=== PATIENT | female | born 1960 | race Two or more races ===

== ENCOUNTER 2017-02-18 05:47 | Day surgery (SDC) | payer BC ==
[2017-02-18] VITALS (10 sets, daily range): BP systolic 90–112; BP diastolic 55–62
[~2017-02-18] VITALS: Ht 152.4 cm; Wt 43.5 kg
[~2017-02-18 05:47] MED LIST: cefOXitin Sod 1 GM in D5W 55 ML IVPB ONE
[2017-02-18] MEDS ORDERED: Lidocaine 1% Plain 30 ml INJ ONE (06:58)
[2017-02-18] MEDS ORDERED: VITAMIN D1000 UNI1 ORAL (07:11)
[2017-02-18] MEDS ORDERED: Metoclopramide 10mg/2ml Inj ONE (07:30)
[2017-02-18] MEDS ORDERED: NS Irrig 1000ml ONE (07:30)
[2017-02-18] MEDS ORDERED: Propofol 10mg/ml 20ml IV ONE (07:30)
[2017-02-18] MEDS ORDERED: LR 1000ml ONE (07:30)
[2017-02-18] MEDS ORDERED: fentaNYL 100 mcg/2 mL IV ONE (07:30)
[2017-02-18] MEDS ORDERED: Midazolam 2mg/2ml Inj ONE (07:30)
[2017-02-18] MEDS ORDERED: Sterile Water Irrig 1000ml IRRIG ONE (07:30)
[2017-02-18] MEDS ORDERED: Ferric Subsulfate (Monsel's Soln) 30ml TOPIC ONE (07:45)
[2017-02-18] MEDS ORDERED: Lugol's (Strong Iodine) 30ml btl TOPIC ONE (07:45)
--- NOTE | 2017-02-18 07:50 | Pre-Procedure Note/Attestation ---
Pre-Procedure Note/Attestation Complete Prior to Procedure Planned Procedure: not applicable Procedure Narrative: LEEP, D&C, Hysteroscopy Indications for Procedure Pre-Operative Diagnosis: Cervical dysplasia, irregular bleeding Attestation I attest that I discussed the nature of the procedure; its benefits; risks and complications; and alternatives (and the risks and benefits of such alternatives ), prior to the procedure, with the patient (or the patient's legal patient service representative). I attest that, if there was a reasonable possibility of needing a blood transfusion, the patient (or the patient's legal patient service representative) was given the [facility] standardized written summary, pursuant to the Dale Adrián Blood Safety Act ([place] Health and Safety Code # 1645, as amended). I attest that I re-evaluated the patient just prior to the surgery and that there has been no change in the patient's H&P, except as documented below:NONE LUIS E GRUBBS Feb 18, 2017 07:50
[2017-02-18] MEDS ORDERED: Bupivacaine w/Epi 0.5% 30ml Vial INJ ONE (08:13)
[2017-02-18] MEDS ORDERED: fentaNYL 100 mcg/2 mL IV PRN (08:15)
[2017-02-18] MEDS ORDERED: Acetaminophen (Non formulary) 1,000 MG/100 ML ML IV ONE (08:30)
--- NOTE | 2017-02-18 08:58 | Immediate Post-Op Evaluation ---
Immediate Post-Op Evalulation Immediate Post-Op Evalulation Procedure: Leep and D&C Date of Evaluation: Feb 18, 2017 Time of Evaluation: 08:58 IV Fluids: 800 Blood Pressure Systolic: 98 Blood Pressure Diastolic: 50 Pulse Rate: 71 Respiratory Rate: 14 O2 Sat by Pulse Oximetry: 100 Temperature (Fahrenheit): 98.3 Nausea: No Vomiting: No Complications none Patient Status: awake, reacts, patent Hydration Status: adequate Drug: ancef Given Within 1 Hr of Incision: Yes Time Given: 07:30 ASHLEY CASTILLO CRNA Feb 18, 2017 08:58
[2017-02-18] MEDS ORDERED: Tylenol #3 tab (300mg/30mg) ORAL PRN (09:00)
[2017-02-18] MEDS ORDERED: HYDROmorphone 1mg/ml Carpuject SUBQ PRN (09:00)
[2017-02-18] MEDS ORDERED: D5 1/2NS 1,000 ML IV SCH (09:00)
[2017-02-18] MEDS ORDERED: Norco 5mg/325mg tab ORAL PRN (09:00)
--- NOTE | 2017-02-18 09:00 | Anethesia Preoperative Eval ---
Anesthesia Pre-op PMH/ROS General Date of Evaluation: Feb 18, 2017 Time of Evaluation: 07:40 Anesthesiologist: ozzie ASA Score: ASA 2 Mallampati Score Class I : Soft palate, uvula, fauces, pillars visible Class II: Soft palate, uvula, fauces visible Class III: Soft palate, base of uvula visible Class IV: Only hard plate visible Mallampati Classification: Class II Surgeon: Carina Diagnosis: Cervical Dysplasia Surgical Procedure: LEEP Anesthesia History: none Social History: drug use Family History: no anesthesia problems Allergies: Coded Allergies: PENICILLINS (Verified Allergy, Unknown, dont remember reaction , 02/18/17) Uncoded Allergies: flouroquinolones (Allergy, Severe, rash all over the body, 02/18/17) Medications: see eMAR Past Medical History Cardiovascular: Denies: CAD, HTN, SD, arrhythmia, other, valve dz Pulmonary: Denies: COPD, ÁLVARO, asthma, other Gastrointestinal/Genitourinary: Denies: CRI, ESRD, GERD, other Neurologic/Psychiatric: Reports: depression/anxiety Endocrine: Denies: DM, hypothyroidism, other, steroids HEENT: Denies: [place] (L), [place] (R), cataract (L), cataract (R), glaucoma, other Hematology/Immune: Denies: DVT, anemia, bleeding disorder, other Musculoskeletal/Integumentary: Reports: OA Other: other - cervical dysplasia PSxH Narrative: T&A Anesthesia Pre-op Phys. Exam Physician Exam Last Vital Signs Date Time Temp Pulse Resp B/P Pulse Ox O2 Delivery O2 Flow Rate FiO2 02/18/17 06:30 97.1 70 18 112/62 100 Room Air Constitutional: NAD Neurologic: CN 2-12 intact Cardiovascular: RRR Respiratory: CTA Gastrointestinal: S/NT/ND Airway Exam Mallampati Classification 2 Mallampati Score: Class II MO: full Dentures: no lower, no upper Anesthesia Pre-op A/P Studies Pre-op Studies: EKG - sr Risk Assessment & Plan Plan: mac Status Change Before Surgery: No Pre-Antibiotics Drug: ancef Given Within 1 Hr of Incision: Yes Time Given: 07:30 ASHLEY CASTILLO CRNA Feb 18, 2017 09:00
--- NOTE | 2017-02-18 09:32 | 48 Hour Post Anesthesia Eval ---
Post Anesthesia Evaluation Procedure: Leep and D&C Date of Evaluation: Feb 18, 2017 Time of Evaluation: 09:32 Blood Pressure Systolic: 93 0: 53 Pulse Rate: 74 Respiratory Rate: 14 O2 Sat by Pulse Oximetry: 100 Airway: patent Nausea: No Vomiting: No Hydration Status: adequate Cardiopulmonary Status: stable Mental Status/LOC: patient returned to baseline Post-Anesthesia Complications: none Follow-up care needed: N/A ASHLEY CASTILLO CRNA Feb 18, 2017 09:32
--- NOTE | 2017-02-18 16:16 | Operative Note - Dictated ---
DATE OF OPERATION: 02/18/2017 PREOPERATIVE DIAGNOSIS: Cervical dysplasia and irregular uterine bleeding. POSTOPERATIVE DIAGNOSIS: Cervical dysplasia and irregular uterine bleeding. PROCEDURE PERFORMED: Cervical LEEP procedure, video hysteroscopy, and fractional dilatation and curettage. SURGEON: Pierre Lim M.D. ANESTHESIA: General. PROCEDURE IN DETAIL: After all the appropriate consents were signed, the patient was brought to the operating room, placed on table in supine position. General anesthesia was induced without complication. The patient was then placed in a dorsal lithotomy position. Perineum, vagina, and abdomen prepped and draped in the usual fashion for the procedure. Cervix was visualized and Lugol solution was applied. The cervical area was well visualized and several areas of low uptake of Lugol's were seen on entering the endocervical canal. At this time, the loop electrode was used to excise the areas of the cervix fully excising the areas of low uptake of Lugol's. A deeper endocervical incision was also undertaken with a smaller a loop electrode. Once this was completed, a Bovie electrode was used to obliterate the areas of the vaginal mucosa and cervical submucosa adjacent to the excised areas. The endocervical area was also vaporized to reduce the chance of dysplasia remaining. At this time, the cervix was grasped with a single-tooth tenaculum, dilated to Hegar #7 and the video hysteroscope was introduced. Hysteroscopy revealed normal cavity with no endometrial lesions and no submucosal fibroids. At this time, endocervical curettage was performed and endometrial curettage was performed as well. All specimens submitted to pathology. The cervix was once again evaluated. The area was apparently fully hemostatic. Monsel's solution was applied to the open wound on the cervix and instruments removed from the vagina. The patient was then placed in the supine position and awakened from general anesthesia. She tolerated the procedure very well. Pierre Lim M.D. DR: MIK JOB#: [id number] CC:
== END 2017-02-18 11:25 | disposition home or self-care (01) ==
LOC: SUR 05:47
DX: N87.0 Mild cervical dysplasia (principal); N88.8 Other specified noninflammatory disorders of cervix uteri; N92.6 Irregular menstruation, unspecified; F32.9 Major depressive disorder, single episode, unspecified; F41.9 Anxiety disorder, unspecified; M19.90 Unspecified osteoarthritis, unspecified site; Z87.891 Personal history of nicotine dependence; Z88.0 Allergy status to penicillin; Z88.8 Allergy status to other drugs, medicaments and biological substances
CPT/HCPCS: 57522; 58558; J0690; J2001; J2250; J2405; J2704; J2765; J3010; J7120; 94003; 94150